=== PATIENT | female | born 1990 | race Caucasian/White ===

== ENCOUNTER 2022-06-03 16:14 | Emergency (ER) | payer BC ==
[~2022-06-03] VITALS: Ht 165.1 cm; Wt 86.2 kg
[2022-06-03] MEDS ORDERED: IV NORMAL SALINE 1000 ML BAG IV ONE (16:30)
[2022-06-03 16:35] LABS: *BILIRUBIN,URIN NEGATIVE (NEGATIVE); *BLOOD, URINE TRACE (NEGATIVE); *CLARITY,URINE CLEAR (CLEAR); *COLOR,URINE YELLOW (YELLOW); *KETONES,URINE NEGATIVE (NEGATIVE); *UROBILINOGEN,URINE 0.2 E.U./dl (NORMAL); LEUKOCYTE ESTERASE ,URINE 3+ (NEGATIVE); NITRITE, URINE NEGATIVE (NEGATIVE); UGLUCOSE NEGATIVE (NEGATIVE)
[2022-06-03 16:36] LABS: *URINE HCG, QUAL NEG (NEGATIVE)
--- NOTE | 2022-06-03 16:40 | NUR ---
PATIENT REFUSED IV H.L. DR OSHEA AWARE.
[2022-06-03 16:51] LABS: HEMATOCRIT 42.5 % (31.2-41.9); MEAN CORPUSCULAR HEMOGLOBIN 26.5 uug (24.7-32.8); MEAN CORPUSCULAR VOLUME 82.4 fL (75.5-95.3); PLATELET COUNT (AUTO) 305 K/uL (179-408)
[2022-06-03 16:56] LABS: CARBON DIOXIDE 27 mmol/L (21-32); CHLORIDE 101 mmol/L (98-107); GLUCOSE 108 mg/dL (74-106); POTASSIUM 3.7 mmol/L (3.5-5.1); UREA NITROGEN, BLOOD 11 mg/dL (7-18)
[2022-06-03 17:08] LABS: ALANINE AMINOTRANSFERASE 25 U/L (14-59); ALKALINE PHOSPHATASE 91 U/L (50-136); ASPARTATE AMINOTRANSFERASE 11 U/L (15-37); BILIRUBIN,DIRECT < 0.1 mg/dL (0.0-0.2); BILIRUBIN,TOTAL 0.1 mg/dL (0.2-1.0); LIPASE 72 U/L (73-393); TOTAL PROTEIN, SERUM 7.9 g/dL (6.4-8.2)
[2022-06-03] MEDS ORDERED: CIPROFLOXACIN HCL 250 MG TABLET PO ONE (17:45)
[2022-06-03 17:55] LABS: BACTERIA,URINE FEW /HPF (NONE SEEN); SQUAMOUS EPITHELIAL CELL,UR FEW /HPF (NONE SEEN)
[2022-06-03] MEDS ORDERED: IBUP-1955 PO (18:12)
[2022-06-03] MEDS ORDERED: CEFD300C3 PO (18:12)
[2022-06-03 18:22] VITALS: BP 133/78
--- NOTE | 2022-06-03 18:22 | NUR ---
Patient discharged to home in stable condition. Written and verbal after care instructions given. Patient verbalizes understanding of instructions. Stressed follow up or return to ER for worsening s/s.
== END 2022-06-03 18:23 | disposition home or self-care (01) ==
LOC: ER 16:14
DX: M54.9 Dorsalgia, unspecified (principal); N39.0 Urinary tract infection, site not specified; Z87.440 Personal history of urinary (tract) infections; Z88.1 Allergy status to other antibiotic agents; Z88.2 Allergy status to sulfonamides
CPT/HCPCS: 36415; 83690; 84703; 85025; A4663